=== PATIENT | female | born 1980 | race African-American/Black ===

== ENCOUNTER 2016-09-20 21:12 | Emergency (ER) | payer MEDICAID ==
[~2016-09-20] VITALS: Ht 177.8 cm; Wt 109.0 kg
[2016-09-20] MEDS ORDERED: ONDANSETRON 4MG ODT PO ONE (21:45)
[2016-09-20] MEDS ORDERED: MORPHINE SULFATE 10 MG/ML CPJ SUBCUT ONE (21:45)
[2016-09-20 22:44] LABS: CLARITY URINE CLOUDY (CLEAR); COLOR URINE RED (YELLOW); GLUCOSE URINE NEGATIVE (NEGATIVE); KETONES URINE NEGATIVE (NEGATIVE); LEUKOCYTE ESTERASE URINE 2+ (NEGATIVE); NITRITE URINE NEGATIVE (NEGATIVE); OCCULT BLOOD URINE 3+ (NEGATIVE); PH URINE 6.5 (4.5-8.0); PROTEIN URINE 1+ (NEGATIVE); SPECIFIC GRAVITY URINE 1.017 (1.005-1.030); UROBILINOGEN URINE 0.2 E.U./dL (0.2-1.0)
[2016-09-20 22:49] LABS: UCG SCREEN NEGATIVE
[2016-09-20 23:13] LABS: WBC URINE 0-2 /hpf (0-2)
[2016-09-20 23:14] LABS: BACTERIA URINE 2+; RBC URINE TNTC /hpf (0-2); SQUAMOUS EPITHELIAL CELL URINE FEW /lpf (RARE/1+)
[2016-09-20] MEDS ORDERED: ALBUTEROL (0.083%) 2.5MG/3ML NEB HHN STA (23:20)
[2016-09-20] MEDS ORDERED: IPRATROPIUM BROMIDE (0.02%) 0.5MG/2.5ML NEB HHN STA (23:20)
[2016-09-21] MEDS ORDERED: ONDANSETRON 4MG ODT PO ONE ×2 (01:30→02:15)
[2016-09-21] MEDS ORDERED: KETOROLAC 60MG/2ML VIAL IM ONE (05:00)
[2016-09-21 06:06] LABS: BASOPHILS % 0.9 % (0.0-2.0); EOSINOPHILS % 0.5 % (0.0-5.0); HEMATOCRIT. 34.2 % (36.0-48.0); LYMPHOCYTES % 23.4 % (20.0-50.0); MEAN CORPUSCULAR HEMOGLOBIN 25.9 pg (28.0-32.0); MEAN CORPUSCULAR HGB CONC 32.2 g/dL (31.0-37.0); MEAN CORPUSCULAR VOLUME 80.4 fL (81.0-99.0); MEAN PLATELET VOLUME 7.2 fl (7.4-10.4); MONOCYTES % 5.2 % (2.0-8.0); PLATELET 418 x1000/uL (130-400); RED BLOOD CELL COUNT 4.26 mill/uL (4.2-5.4); RED CELL DISTRIBUTION WIDTH 15.4 % (11.6-14.6); WHITE BLOOD COUNT 14.8 x1000/uL (4.5-11.0)
[2016-09-21 06:09] LABS: CHLORIDE 105 mEq/L (98-107); INDEX HEMOLYSI 1 (1-3); INDEX ICTERIC 1 (1-4); INDEX LIPEMIC 1 (1-3)
[2016-09-21 06:22] LABS: ALANINE AMINOTRANSFERASE 16 IU/L (13-61); ALBUMIN 3.5 g/dL (3.4-5.0); ANION GAP 12; CALCIUM 9.4 mg/dL (8.5-10.1); CARBON DIOXIDE 27 mEq/L (21-32); UREA NITROGEN BLOOD 9 mg/dL (7-21); eGFR > 60 mL/min (>60)
[2016-09-21 09:50] VITALS: BP 115/65
== END 2016-09-21 09:50 | disposition home or self-care (01) ==
LOC: ER 21:54
DX: N39.0 Urinary tract infection, site not specified (principal); J45.909 Unspecified asthma, uncomplicated; Z88.0 Allergy status to penicillin; F12.10 Cannabis abuse, uncomplicated; Z98.890 Other specified postprocedural states
CPT/HCPCS: 36415; 76770; 80053; 81001; 81025; 84702; 85025; 94640; 96372; 99285; J1885; J2270; J7611; Q0162; Z7610